=== PATIENT | female | born 1930 | race American Indian/Alaskan Native ===

== ENCOUNTER 2017-08-11 18:58 | Inpatient (IN) | payer MEDICARE ==
--- NOTE | 2017-08-11 19:52 | Emergency Department Report ---
HPI - General Time Seen by Provider: 08/11/17 19:36 - HPI HPI: Room 5 The patient is a 87-year-old female presenting with chief complaint of unresponsiveness. Family states the patient was found slumped over in a chair unresponsive and clammy. Family states the patient was last seen 2 hours prior to this event. Family states they called EMS and the patient gradually became more responsive over the course of 20-30 minutes. Patient states she does remember sitting down in the chair but does not remember events preceding her decreased responsiveness. Patient had no complaints all day and currently has no complaints. Patient denies ever having chest pain, shortness of breath, headache, nausea or vomiting. 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" - Family History Family history: no significant - Social History Smoking Status: Never Smoker Substance Use Type: None - Medications Home Medications: Home Medications Medication Instructions Recorded Confirmed Last Taken Type Aspirin [Aspirin BABY CHEW TAB] 81 mg PO QDAY 10/24/14 05/31/15 05/31/15 History Furosemide [Lasix] 40 mg PO DAILY 10/24/14 05/31/15 05/31/15 History HYDROcodone/APAP 5-325 [[place] 1 each PO Q6HR PRN 10/24/14 05/31/15 05/31/15 History 5-325 mg TAB] Lisinopril 10 mg PO DAILY 10/24/14 05/31/15 05/31/15 History amLODIPine [Norvasc] 5 mg PO DAILY 10/24/14 05/31/15 05/31/15 History ED Review of Systems ROS: Stated complaint: GENERAL WEAKNESS Other details as noted in HPI Comment: All other systems reviewed and negative Constitutional: denies: chills, fever Eyes: denies: eye pain, eye discharge, vision change ENT: denies: ear pain, throat pain Respiratory: denies: cough, shortness of breath, wheezing Cardiovascular: denies: chest pain, palpitations Endocrine: no symptoms reported Gastrointestinal: denies: abdominal pain, nausea, diarrhea Genitourinary: denies: urgency, dysuria, discharge Musculoskeletal: denies: back pain, joint swelling, arthralgia Skin: denies: rash, lesions Neurological: other (unresponsive). denies: headache Psychiatric: denies: anxiety, depression Hematological/Lymphatic: denies: easy bleeding, easy bruising Physical Exam - Physical Exam Physical Exam: GENERAL: The patient is well-developed well-nourished elderly female lying on stretcher not appearing to be in acute distress. [] HEENT: Normocephalic. Atraumatic. Extraocular motions are intact. Patient has moist mucous membranes. NECK: Supple. Trachea midline CHEST/LUNGS: Clear to auscultation. There is no respiratory distress noted. HEART/CARDIOVASCULAR: Regular. There is no tachycardia. There is no gallop rub or murmur. ABDOMEN: Abdomen is soft, nontender. Patient has normal bowel sounds. There is no abdominal distention. SKIN: There is no rash. There is no edema. There is no diaphoresis. NEURO: The patient is awake, alert, and oriented. The patient is cooperative. The patient has no focal neurologic deficits. The patient has normal speech. Cranial nerves II through XII grossly intact, no drift, property site manager is 5+/5 bilaterally. Normal sensation throughout. Moves all extremities well MUSCULOSKELETAL: There is no evidence of acute injury. ED Medical Decision Making - Lab Data Result diagrams: 08/11/17 20:18 08/11/17 20:18 - EKG Data -: EKG Interpreted by Me EKG shows normal: sinus rhythm Rate: normal - EKG Data When compared to previous EKG there are: previous EKG unavailable Interpretation: other (no ischemic changes seen) - Radiology Data Radiology results: report reviewed (chest x-ray), image reviewed (chest x-ray, CT head) interpreted by me: Chest x-ray-no focal infiltrate, no pneumothorax Chest x-ray (read by radiologist)-COPD, no acute pulmonary process. Mild cardiomegaly. CT head (read by radiologist) -no acute intracranial process - Differential Diagnosis dysrhythmia, ICH, TIA, syncope Critical care attestation.: If time is entered above; I have spent that time in minutes in the direct care of this critically ill patient, excluding procedure time. ED Disposition Clinical Impression: Syncope, Elevated troponin, Renal insufficiency Disposition: DC-09 OP ADMIT IP TO THIS HOSP Is pt being admited?: Yes Does the pt Need Aspirin: No (will substitute with Plavix given renal insufficiency) Condition: Stable Instructions: Syncope (ED) Referrals: HUMBLE PATEL MD [Primary Care Provider] - 3-5 Days Time of Disposition: 21:18 (hospitalist paged)
--- NOTE | 2017-08-11 20:18 | XRay Report ---
FINAL REPORT PROCEDURE: XR CHEST 1V AP TECHNIQUE: Chest radiograph anteroposterior view. CPT 64768 HISTORY: episode of unresponsiveness COMPARISON: No prior studies are available for comparison. FINDINGS: Heart: Mild cardiomegaly Mediastinum/Vessels: Normal. Lungs/Pleural space: Lungs are hyperinflated. There are no confluent infiltrates or mass lesions. Pleural spaces are clear.. Bony thorax: No acute osseous abnormality. Life support devices: None. IMPRESSION: COPD No acute pulmonary process Mild cardiomegaly.
[2017-08-11 20:33] LABS: Basophils % (Auto) 1.1 % (0.0-1.8); Eosinophils % (Auto) 1.4 % (0.0-4.3); Hemoglobin 11.8 gm/dl (10.1-14.3); Mean Corpuscular HGB Conc 33 % (30-34); Mean Corpuscular Hemoglobin 29 pg (28-32); Mean Corpuscular Volume 87 fl (79-97); Platelet Count 214 K/mm3 (140-440); Red Blood Count 4.13 M/mm3 (3.65-5.03); Red Cell Distribution Width 16.1 % (13.2-15.2); White Blood Count 5.3 K/mm3 (4.5-11.0)
[2017-08-11 20:45] LABS: INR 1.02 (0.87-1.13)
[2017-08-11 20:46] LABS: Partial Thromboplastin Time 27.1 Sec. (24.2-36.6)
[2017-08-11 20:56] LABS: Creatine Kinase MB 4.1 ng/mL (0.0-4.0)
[2017-08-11 20:57] LABS: Albumin 3.9 g/dL (3.9-5); Albumin/Globulin Ratio 1.3 %; Bilirubin,Total 0.3 mg/dL (0.1-1.2); Calcium 10.1 mg/dL (8.4-10.2); Chloride 104.5 mmol/L (98-107); Magnesium 2.3 mg/dL (1.7-2.3); Total Protein 6.8 g/dL (6.3-8.2)
--- NOTE | 2017-08-11 21:14 | Cat Scan Report ---
FINAL REPORT PROCEDURE: CT HEAD/BRAIN WO CON TECHNIQUE: Computerized tomography of the head was performed without contrast material. HISTORY: episode of unresponsiveness COMPARISON: No prior studies are available for comparison. FINDINGS: Skull and scalp: Normal. Paranasal sinuses: Normal. Ventricles and subarachnoid spaces: Are prominent consistent with cerebral atrophy.. Cerebrum: Moderate degree bilateral periventricular nonspecific white matter hypodensity is noted. An acute intracranial hemorrhage or mass effect is not identified.. Cerebellum and brainstem: No evidence of hemorrhage, acute infarction or mass. Vasculature: Atherosclerotic calcification is noted involving bilateral internal carotid and vertebral arteries.. Comments: None. IMPRESSION: Cerebral atrophy appropriate for patient's age. No acute intracranial abnormality. 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
[2017-08-11] MEDS ORDERED: PLAVIX PO ONE (21:19)
--- NOTE | 2017-08-11 23:04 | History and Physical Report ---
History of Present Illness Date of examination: 08/11/17 History of present illness: 87-year-old lady with a history of hypertension, diabetes, chronic kidney disease was found slumped over in a chair at home. It's unclear how long the patient syncopized. Son states that the patient was clammy Review Of Systems: Constitutional: no weight loss Ears, eyes, nose, mouth and throat: no nasal congestion, no nasal discharge, no sinus pressure, blurry vision, diplopia Neck: No neck pain or rigidity. Cardiovascular: no chest pain, orthopnea, palpitations Respiratory: No shortness of breath, cough Gastrointestinal: abdominal pain, hematochezia Genitourinary : no dysuria, frequency , hematuria Musculoskeletal: no muscle ache Integumentary: no rash, no pruritis Neurological: no parathesias, focal weakness Endocrine: no cold or heat intolerance, no polyuria or polydipsia Hematologic/Lymphatic: no easy bruising, no easy bleeding, no gland swelling Allergic/Immunologic: no urticaria, no angioedema. PAST MEDICAL HISTORY:hypertension, diabetes, chronic kidney disease PAST SURGICAL HISTORY: Nephrectomy FAMILY HISTORY:hypertension SOCIAL HISTORY: Denies alcohol, tobacco, drugs Medications and Allergies Allergies Allergy/AdvReac Type Severity Reaction Status Date / Time No Known Allergies Allergy Verified 10/24/14 02:39 Home Medications Medication Instructions Recorded Confirmed Last Taken Type Aspirin [Aspirin BABY CHEW TAB] 81 mg PO QDAY 10/24/14 08/11/17 05/31/15 History Furosemide [Lasix] 10 mg PO 2XW 10/24/14 08/11/17 05/31/15 History Lisinopril 10 mg PO DAILY 10/24/14 08/11/17 05/31/15 History amLODIPine [Norvasc] 5 mg PO DAILY 10/24/14 08/11/17 05/31/15 History Cholecalciferol (Vitamin D3) 1,000 unit PO 2XW 08/11/17 08/11/17 Unknown History [Vitamin D3] Exam - Physical Exam Narrative exam: Gen. appearance: Patient lying in bed in no acute distress HEENT: Normocephalic/atraumatic, pupils equal round reactive to light, extra alkaline movement intact, no scleral icterus, no JVD or thyromegaly or nodule, neck is supple, mucous membrane moist, no erythema or exudate Heart: S1-S2, regular rate and rhythm Lungs: Clear to auscultation bilateral breathing comfortable Abdomen: Positive bowel sounds, nontender, nondistended, no organomegaly Extremities: No edema, cyanosis, clubbing Neuro:: Oriented 3 , cranial nerves II-12 intact, speech, motor intact Skin: No rash, nodules, warm dry - Constitutional Vitals: Temp Pulse Resp BP Pulse Ox 98.2 F 60 20 121/40 100 08/11/17 22:08 08/11/17 22:08 08/11/17 22:08 08/11/17 22:08 08/11/17 22:08 Results - Labs CBC & Chem 7: 08/12/17 04:52 08/12/17 04:52 Labs: Abnormal lab results 08/11/17 08/11/17 08/11/17 Range/Units 20:18 20:18 20:18 RDW 16.1 H (13.2-15.2) % Lymph # 0.8 L (1.2-5.4) K/mm3 Seg Neutrophils % 77.6 H (40.0-70.0) % D-Dimer 1852 H (0-234) ng/mlDDU BUN 44 H (7-17) mg/dL Creatinine 1.5 H (0.7-1.2) mg/dL Glucose 146 H (65-100) mg/dL Total Creatine Kinase 161 H (30-135) units/L CK-MB (CK-2) 4.1 H (0.0-4.0) ng/mL Troponin T 0.039 H (0.00-0.029) ng/mL Cholesterol 235 H (50-199) mg/dL LDL Cholesterol Direct 142 H (50-130) mg/dL HDL Cholesterol 66 H (40-59) mg/dL - Imaging and Cardiology EKG: image reviewed Chest x-ray: image reviewed CT Scan - head: report reviewed Assessment and Plan Assessment Near-syncope Hypertension Diabetes Chronic kidney disease Plan Admit to medicine Check cardiac enzymes, d-dimer, consult cardiology D-dimer positive will check a VQ scan, othostatics Hold antihypertensives Check fingersticks and initiate insulin sliding scale DVT prophylaxis
[2017-08-11] MEDS ORDERED: MILK OF MAGNESIA PO PRN (23:24)
[2017-08-11] MEDS ORDERED: TYLENOL PO PRN (23:24)
[2017-08-11] MEDS ORDERED: DULCOLAX PR PRN (23:24)
[2017-08-11] MEDS ORDERED: ZOFRAN IV PRN (23:24)
[2017-08-11 23:45] LABS: Creatine Kinase MB 4.3 ng/mL (0.0-4.0)
--- NOTE | 2017-08-12 00:13 | Nuclear Medicine Report ---
FINAL REPORT EXAM: NM LUNG SCAN PERF/VENT HISTORY: eval for pe COMPARISON: Chest x-ray from August 11, 2017. TECHNIQUE: 15 millicuries xenon 133 given by ventilation. 5 millicuries technetium 99 MAA administered by IV. FINDINGS: Mild heterogeneous uptake of tracer on the ventilation portion exam. There is heterogeneous uptake of tracer on the perfusion portion the study also. Questionable tiny subsegmental mismatched defect at the lateral margin right midlung. No definite segmental mismatched defect. IMPRESSION: Low probability exam for pulmonary embolus.
[2017-08-12] MEDS ORDERED: D50W (25GM) Syringe IV PRN (00:37)
[2017-08-12] MEDS ORDERED: NON-FORMULARY (Cholecalciferol (Vitamin D3) [Vitamin D3] 1,000 UNIT) PO SCH (00:45)
[2017-08-12 01:13] LABS: Creatine Kinase MB 4.6 ng/mL (0.0-4.0)
[2017-08-12 05:11] LABS: Bilirubin,Urine NEG (Negative); Blood,Urine NEG (Negative); Ketones,Urine NEG (Negative); Leukocyte Esterase,Urine TR (Negative); Nitrite,Urine NEG (Negative); Protein,Urine <15 mg/dL mg/dL (Negative); RBC,Urine < 1.0 /HPF (0.0-6.0); Urobilinogen,Urine < 2.0 mg/dL (<2.0)
[2017-08-12 06:09] LABS: Basophils % (Auto) 1.1 % (0.0-1.8); Eosinophils % (Auto) 1.1 % (0.0-4.3); Hematocrit 33.1 % (30.3-42.9); Hemoglobin 11.1 gm/dl (10.1-14.3); Mean Corpuscular HGB Conc 33 % (30-34); Mean Corpuscular Hemoglobin 29 pg (28-32); Mean Corpuscular Volume 86 fl (79-97); Platelet Count 206 K/mm3 (140-440); Red Blood Count 3.86 M/mm3 (3.65-5.03); Red Cell Distribution Width 16.3 % (13.2-15.2); White Blood Count 5.6 K/mm3 (4.5-11.0)
[2017-08-12 06:29] LABS: Creatine Kinase MB 4.8 ng/mL (0.0-4.0)
[2017-08-12 06:30] LABS: Calcium 10.1 mg/dL (8.4-10.2); Potassium 4.1 mmol/L (3.6-5.0)
[2017-08-12] MEDS: NOVOLOG SUB-Q SCH ×4 (07:28→22:29)
--- NOTE | 2017-08-12 07:31 | Progress Note ---
Assessment and Plan Assessment and plan: The patient is a 87-year-old female presenting with chief complaint of unresponsiveness. Family states the patient was found slumped over in a chair unresponsive and clammy. Family states the patient was last seen 2 hours prior to this event. Family states they called EMS and the patient gradually became more responsive over the course of 20-[address] of the head no acute intracranial process Echocardiogram ordered. 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 Most likely related to dehydration Avoid renal toxicity Hold AQUILINO inhibitor/ARB's for now IV fluid hydration if renal function does not improve with fluid and consider nephrology Repeat BMP in the AM Closely monitor Diabetes mellitus Accu-Chek before meals and at bedtime Sliding scale insulin/NovoLog ADA consistent carbohydrate/cardiac diet Hypertension Hold AQUILINO inhibitor/ARB's for now IV hydralazine for SBP> 160 for now Closely monitor blood pressure Elevated D-dimer VQ scan no evidence of pulmonary embolism VL dopper ordered Eleavted troponin EKG sinus rhythm Echocardiogram ordered. VL carotid duplex ordered Stress test we will leave it to cardiology Cardiac evaluation DVT/prophylaxis Lovenox History Interval history: Patient denies dizziness, lightheadedness and chest pain. Labs and nurse notes reviewed Hospitalist Physical - Constitutional Vitals: Temp Pulse Resp BP Pulse Ox 98.5 F 73 18 139/56 100 08/12/17 04:45 08/12/17 04:45 08/12/17 04:45 08/12/17 04:45 08/12/17 04:45 General appearance: Present: no acute distress - EENT Eyes: Present: PERRL ENT: hearing intact - Neck Neck: Present: supple - Respiratory Respiratory: bilateral: CTA - Cardiovascular Rhythm: regular Heart Sounds: Present: S1 & S2 - Abdominal General gastrointestinal: soft, non-tender - Integumentary Integumentary: Present: clear, warm, dry - Psychiatric Psychiatric: appropriate mood/affect - Neurologic Neurologic: CNII-XII intact - Allied Health Allied health notes reviewed: nursing Results - Labs CBC & Chem 7: 08/12/17 04:52 08/12/17 04:52 Labs: Laboratory Last Values WBC 5.6 K/mm3 (4.5-11.0) 08/12/17 04:52 RBC 3.86 M/mm3 (3.65-5.03) 08/12/17 04:52 Hgb 11.1 gm/dl (10.1-14.3) 08/12/17 04:52 Hct 33.1 % (30.3-42.9) 08/12/17 04:52 MCV 86 fl (79-97) 08/12/17 04:52 MCH 29 pg (28-32) 08/12/17 04:52 MCHC 33 % (30-34) 08/12/17 04:52 RDW 16.3 % (13.2-15.2) H 08/12/17 04:52 Plt Count 206 K/mm3 (140-440) 08/12/17 04:52 Lymph % (Auto) 25.5 % (13.4-35.0) 08/12/17 04:52 [place] % (Auto) 7.1 % (0.0-7.3) 08/12/17 04:52 Eos % (Auto) 1.1 % (0.0-4.3) 08/12/17 04:52 Baso % (Auto) 1.1 % (0.0-1.8) 08/12/17 04:52 Lymph # 1.4 K/mm3 (1.2-5.4) 08/12/17 04:52 [place] # 0.4 K/mm3 (0.0-0.8) 08/12/17 04:52 Eos # 0.1 K/mm3 (0.0-0.4) 08/12/17 04:52 Baso # 0.1 K/mm3 (0.0-0.1) 08/12/17 04:52 Seg Neutrophils % 65.2 % (40.0-70.0) 08/12/17 04:52 Seg Neutrophils # 3.6 K/mm3 (1.8-7.7) 08/12/17 04:52 PT 13.9 Sec. (12.2-14.9) 08/11/17 20:18 INR 1.02 (0.87-1.13) 08/11/17 20:18 APTT 27.1 Sec. (24.2-36.6) 08/11/17 20:18 D-Dimer 1852 ng/mlDDU (0-234) H 08/11/17 20:18 Sodium 144 mmol/L (137-145) 08/12/17 04:52 Potassium 5.0 mmol/L (3.6-5.0) 08/11/17 20:18 Chloride 104.5 mmol/L (98-107) 08/11/17 20:18 Carbon Dioxide 23 mmol/L (22-30) 08/12/17 04:52 Anion Gap 19 mmol/L 08/11/17 20:18 BUN 42 mg/dL (7-17) H 08/12/17 04:52 Creatinine 1.3 mg/dL (0.7-1.2) H 08/12/17 04:52 Estimated GFR 47 ml/min 08/12/17 04:52 BUN/Creatinine Ratio 32 % 08/12/17 04:52 Glucose 106 mg/dL (65-100) H 08/12/17 04:52 Calcium 10.1 mg/dL (8.4-10.2) 08/12/17 04:52 Magnesium 2.30 mg/dL (1.7-2.3) 08/11/17 20:18 Total Bilirubin 0.30 mg/dL (0.1-1.2) 08/11/17 20:18 AST 21 units/L (5-40) 08/11/17 20:18 ALT 10 units/L (7-56) 08/11/17 20:18 Alkaline Phosphatase 84 units/L (35-129) 08/11/17 20:18 Ammonia 31.0 umol/L (25-60) 08/11/17 20:18 Total Creatine Kinase 156 units/L (30-135) H 08/12/17 04:52 CK-MB (CK-2) 4.8 ng/mL (0.0-4.0) H 08/12/17 04:52 CK-MB (CK-2) Rel Index 3.0 (0-4) 08/12/17 04:52 Troponin T 0.037 ng/mL (0.00-0.029) H 08/12/17 04:52 Total Protein 6.8 g/dL (6.3-8.2) 08/11/17 20:18 Albumin 3.9 g/dL (3.9-5) 08/11/17 20:18 Albumin/Globulin Ratio 1.3 % 08/11/17 20:18 Triglycerides 135 mg/dL (2-149) 08/11/17 20:18 Cholesterol 235 mg/dL (50-199) H 08/11/17 20:18 LDL Cholesterol Direct 142 mg/dL (50-130) H 08/11/17 20:18 HDL Cholesterol 66 mg/dL (40-59) H 08/11/17 20:18 Cholesterol/HDL Ratio 3.56 % 08/11/17 20:18 TSH 3.020 mlU/mL (0.270-4.200) 08/11/17 20:18 Free T4 1.23 ng/dL (0.76-1.46) 08/11/17 20:18 Urine Color Yellow (Yellow) 08/11/17 04:40 Urine Turbidity Clear (Clear) 08/11/17 04:40 Urine pH 5.0 (5.0-7.0) 08/11/17 04:40 Ur Specific [place] 1.016 (1.003-1.030) 08/11/17 04:40 Urine Protein <15 mg/dl mg/dL (Negative) 08/11/17 04:40 Urine Glucose (UA) Neg mg/dL (Negative) 08/11/17 04:40 Urine Ketones Neg mg/dL (Negative) 08/11/17 04:40 Urine Blood Neg (Negative) 08/11/17 04:40 Urine Nitrite Neg (Negative) 08/11/17 04:40 Urine Bilirubin Neg (Negative) 08/11/17 04:40 Urine Urobilinogen < 2.0 mg/dL (<2.0) 08/11/17 04:40 Ur Leukocyte Esterase Tr (Negative) 08/11/17 04:40 Urine WBC (Auto) 3.0 /HPF (0.0-6.0) 08/11/17 04:40 Urine RBC (Auto) < 1.0 /HPF (0.0-6.0) 08/11/17 04:40 U Epithel Cells (Auto) < 1.0 /HPF (0-13.0) 08/11/17 04:40 - Imaging and Cardiology Chest x-ray: image reviewed (unremarkable) CT Scan - head: image reviewed (acute intracranial process)
[2017-08-12] MEDS ORDERED: NACL 0.9% 1000 ML 1,000 ML IV SCH (08:00)
[2017-08-12] MEDS: LOVENOX SUB-Q SCH (10:29)
[2017-08-12] MEDS: BABY ASPIRIN PO SCH (10:29)
--- NOTE | 2017-08-12 11:02 | Consultation ---
History of Present Illness Consult date: 08/12/17 Consult reason: syncope History of present illness: This is an 87yr old woman was brought in after she was found unresponsive and diaphoretic by family members. Patient denies chest pain, shortness of breath and palpitations. Patient denies nausea vomiting, fever and chills. Her presenting ECG is a normal sinus rhythm. Most recent cardiac workup was an echocardiogram 2 years ago that reports a normal left ventricular systolic function, ejection fraction 55-60%. Cardiology consultation was requested for further evaluation. Medications and Allergies Allergies Allergy/AdvReac Type Severity Reaction Status Date / Time No Known Allergies Allergy Verified 10/24/14 02:39 Home Medications Medication Instructions Recorded Confirmed Last Taken Type Aspirin [Aspirin BABY CHEW TAB] 81 mg PO QDAY 10/24/14 08/11/17 05/31/15 History Furosemide [Lasix] 10 mg PO 2XW 10/24/14 08/11/17 05/31/15 History Lisinopril 10 mg PO DAILY 10/24/14 08/11/17 05/31/15 History amLODIPine [Norvasc] 5 mg PO DAILY 10/24/14 08/11/17 05/31/15 History Cholecalciferol (Vitamin D3) 1,000 unit PO 2XW 08/11/17 08/11/17 Unknown History [Vitamin D3] Active Meds: Active Medications Acetaminophen (Tylenol) 650 mg PO Q4H PRN PRN Reason: Pain MILD(1-3)/Fever >100.5/[place] Aspirin (Baby Aspirin) 81 mg PO QDAY [facility] Last Admin: 08/12/17 10:29 Dose: 81 mg Bisacodyl (Dulcolax) 10 mg [place] QDAY PRN PRN Reason: Constipation unrelieved by MOM Cholecalciferol (Vitamin D3) 1,000 unit PO TuFr [facility] Dextrose (D50w (25gm) Syringe) 50 ml IV PRN PRN PRN Reason: Hypoglycemia Enoxaparin Sodium (Lovenox) 30 mg SUB-Q QDAY [facility] Last Admin: 08/12/17 10:29 Dose: 30 mg Sodium Chloride (Nacl 0.9% 1000 Ml) 1,000 mls @ 75 mls/hr IV DIRECT TRAE Insulin Aspart (Novolog) 0 units SUB-Q ACHS TRAE PRN Reason: Protocol Last Admin: 08/12/17 07:28 Dose: Not Given Magnesium Hydroxide (Milk Of Magnesia) 30 ml PO Q4H PRN PRN Reason: Constipation Ondansetron HCl (Zofran) 4 mg IV Q8H PRN PRN Reason: N/V unrelieved by Reglan Physical Examination Vital Signs Temp Pulse Resp BP Pulse Ox 98.2 F 53 L 20 126/39 100 08/11/17 19:30 08/11/17 19:30 08/11/17 19:30 08/11/17 19:30 08/11/17 19:30 General appearance: no acute distress HEENT: Positive: PERRL Neck: Positive: trachea midline Cardiac: Positive: Reg Rate and Rhythm Lungs: Positive: Decreased Breath Sounds Neuro: Positive: Grossly Intact Results 08/12/17 04:52 08/12/17 04:52 Cardiac Enzymes 08/11/17 08/12/17 08/12/17 Range/Units 23:11 00:35 04:52 CK-MB (CK-2) 4.3 H 4.6 H 4.8 H (0.0-4.0) ng/mL CBC 08/12/17 Range/Units 04:52 WBC 5.6 (4.5-11.0) K/mm3 RBC 3.86 (3.65-5.03) M/mm3 Hgb 11.1 (10.1-14.3) gm/dl Hct 33.1 (30.3-42.9) % Plt Count 206 (140-440) K/mm3 Lymph # 1.4 (1.2-5.4) K/mm3 [place] # 0.4 (0.0-0.8) K/mm3 Eos # 0.1 (0.0-0.4) K/mm3 Baso # 0.1 (0.0-0.1) K/mm3 Comprehensive Metabolic Panel 08/12/17 Range/Units 04:52 Sodium 144 (137-145) mmol/L Carbon Dioxide 23 (22-30) mmol/L BUN 42 H (7-17) mg/dL Creatinine 1.3 H (0.7-1.2) mg/dL Glucose 106 H (65-100) mg/dL Calcium 10.1 (8.4-10.2) mg/dL
--- NOTE | 2017-08-13 08:14 | Progress Note ---
Assessment and Plan Assessment and plan: The patient is a 87-year-old female presenting with chief complaint of unresponsiveness. Family states the patient was found slumped over in a chair unresponsive and clammy. Family states the patient was last seen 2 hours prior to this event. Family states they called EMS and the patient gradually became more responsive over the course of 20-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 Most likely related to dehydration Avoid renal toxicity Hold AQUILINO inhibitor/ARB's for now IV fluid hydration if renal function does not improve with fluid and consider nephrology Repeat BMP in the AM Closely monitor Diabetes mellitus Accu-Chek before meals and at bedtime Sliding scale insulin/NovoLog ADA consistent carbohydrate/cardiac diet Hypertension Hold AQUILINO inhibitor/ARB's for now IV hydralazine for SBP> 160 for now Closely monitor blood pressure Elevated D-dimer VQ scan no evidence of pulmonary embolism VL dopper ordered Eleavted troponin EKG sinus rhythm Echocardiogram ordered. VL carotid duplex ordered Stress test we will leave it to cardiology Cardiac evaluation DVT/prophylaxis [facility] Hospitalist Physical - Constitutional Vitals: Temp Pulse Resp BP Pulse Ox 98.2 F 69 16 130/60 99 08/13/17 07:00 08/13/17 07:35 08/13/17 07:00 08/13/17 07:00 08/13/17 07:35 General appearance: Present: no acute distress Results - Labs CBC & Chem 7: 08/12/17 04:52 08/12/17 04:52 Labs: Laboratory Last Values WBC 5.6 K/mm3 (4.5-11.0) 08/12/17 04:52 RBC 3.86 M/mm3 (3.65-5.03) 08/12/17 04:52 Hgb 11.1 gm/dl (10.1-14.3) 08/12/17 04:52 Hct 33.1 % (30.3-42.9) 08/12/17 04:52 MCV 86 fl (79-97) 08/12/17 04:52 MCH 29 pg (28-32) 08/12/17 04:52 MCHC 33 % (30-34) 08/12/17 04:52 RDW 16.3 % (13.2-15.2) H 08/12/17 04:52 Plt Count 206 K/mm3 (140-440) 08/12/17 04:52 Lymph % (Auto) 25.5 % (13.4-35.0) 08/12/17 04:52 [place] % (Auto) 7.1 % (0.0-7.3) 08/12/17 04:52 Eos % (Auto) 1.1 % (0.0-4.3) 08/12/17 04:52 Baso % (Auto) 1.1 % (0.0-1.8) 08/12/17 04:52 Lymph # 1.4 K/mm3 (1.2-5.4) 08/12/17 04:52 [place] # 0.4 K/mm3 (0.0-0.8) 08/12/17 04:52 Eos # 0.1 K/mm3 (0.0-0.4) 08/12/17 04:52 Baso # 0.1 K/mm3 (0.0-0.1) 08/12/17 04:52 Seg Neutrophils % 65.2 % (40.0-70.0) 08/12/17 04:52 Seg Neutrophils # 3.6 K/mm3 (1.8-7.7) 08/12/17 04:52 PT 13.9 Sec. (12.2-14.9) 08/11/17 20:18 INR 1.02 (0.87-1.13) 08/11/17 20:18 APTT 27.1 Sec. (24.2-36.6) 08/11/17 20:18 D-Dimer 1852 ng/mlDDU (0-234) H 08/11/17 20:18 Sodium 144 mmol/L (137-145) 08/12/17 04:52 Potassium 5.0 mmol/L (3.6-5.0) 08/11/17 20:18 Chloride 104.5 mmol/L (98-107) 08/11/17 20:18 Carbon Dioxide 23 mmol/L (22-30) 08/12/17 04:52 Anion Gap 19 mmol/L 08/11/17 20:18 BUN 42 mg/dL (7-17) H 08/12/17 04:52 Creatinine 1.3 mg/dL (0.7-1.2) H 08/12/17 04:52 Estimated GFR 47 ml/min 08/12/17 04:52 BUN/Creatinine Ratio 32 % 08/12/17 04:52 Glucose 106 mg/dL (65-100) H 08/12/17 04:52 POC Glucose 117 (70-105) H 08/12/17 22:20 Calcium 10.1 mg/dL (8.4-10.2) 08/12/17 04:52 Magnesium 2.30 mg/dL (1.7-2.3) 08/11/17 20:18 Total Bilirubin 0.30 mg/dL (0.1-1.2) 08/11/17 20:18 AST 21 units/L (5-40) 08/11/17 20:18 ALT 10 units/L (7-56) 08/11/17 20:18 Alkaline Phosphatase 84 units/L (35-129) 08/11/17 20:18 Ammonia 31.0 umol/L (25-60) 08/11/17 20:18 Total Creatine Kinase 156 units/L (30-135) H 08/12/17 04:52 CK-MB (CK-2) 4.8 ng/mL (0.0-4.0) H 08/12/17 04:52 CK-MB (CK-2) Rel Index 3.0 (0-4) 08/12/17 04:52 Troponin T 0.037 ng/mL (0.00-0.029) H 08/12/17 04:52 Total Protein 6.8 g/dL (6.3-8.2) 08/11/17 20:18 Albumin 3.9 g/dL (3.9-5) 08/11/17 20:18 Albumin/Globulin Ratio 1.3 % 08/11/17 20:18 Triglycerides 135 mg/dL (2-149) 08/11/17 20:18 Cholesterol 235 mg/dL (50-199) H 08/11/17 20:18 LDL Cholesterol Direct 142 mg/dL (50-130) H 08/11/17 20:18 HDL Cholesterol 66 mg/dL (40-59) H 08/11/17 20:18 Cholesterol/HDL Ratio 3.56 % 08/11/17 20:18 TSH 3.020 mlU/mL (0.270-4.200) 08/11/17 20:18 Free T4 1.23 ng/dL (0.76-1.46) 08/11/17 20:18 Urine Color Yellow (Yellow) 08/11/17 04:40 Urine Turbidity Clear (Clear) 08/11/17 04:40 Urine pH 5.0 (5.0-7.0) 08/11/17 04:40 Ur Specific [place] 1.016 (1.003-1.030) 08/11/17 04:40 Urine Protein <15 mg/dl mg/dL (Negative) 08/11/17 04:40 Urine Glucose (UA) Neg mg/dL (Negative) 08/11/17 04:40 Urine Ketones Neg mg/dL (Negative) 08/11/17 04:40 Urine Blood Neg (Negative) 08/11/17 04:40 Urine Nitrite Neg (Negative) 08/11/17 04:40 Urine Bilirubin Neg (Negative) 08/11/17 04:40 Urine Urobilinogen < 2.0 mg/dL (<2.0) 08/11/17 04:40 Ur Leukocyte Esterase Tr (Negative) 08/11/17 04:40 Urine WBC (Auto) 3.0 /HPF (0.0-6.0) 08/11/17 04:40 Urine RBC (Auto) < 1.0 /HPF (0.0-6.0) 08/11/17 04:40 U Epithel Cells (Auto) < 1.0 /HPF (0-13.0) 08/11/17 04:40
[2017-08-13] MEDS ORDERED: LEXISCAN IV ONE ×2 (09:18)
[2017-08-13] MEDS ORDERED: VITAMIN D3 PO SCH (10:00)
[2017-08-13] MEDS: NOVOLOG SUB-Q SCH ×3 (12:05→22:06)
[2017-08-13] MEDS: BABY ASPIRIN PO SCH (12:19)
[2017-08-13] MEDS: LOVENOX SUB-Q SCH (12:19)
--- NOTE | 2017-08-13 14:32 | Progress Note ---
Assessment and Plan - Patient Problems (1) Syncope Current Visit: Yes Status: Acute Plan to address problem: No ischemia on MPI today severe left ventricular hypertrophy, EF 70-75%. Recommendations: Neurological consultation for workup of syncope. Outpatient event monitor. Otherwise, no further cardiac workup. Subjective Date of service: 08/13/17 Interval history: For persantine thallium stress test today. Objective Vital Signs Temp Pulse Resp BP BP Pulse Ox 08/13/17 11:59 88 100 08/13/17 11:58 98.1 F 87 16 165/79 100 08/13/17 09:43 88 142/55 08/13/17 09:42 87 153/62 08/13/17 09:41 84 157/64 08/13/17 09:40 89 149/64 08/13/17 09:39 88 174/64 08/13/17 09:30 65 174/64 08/13/17 07:35 69 99 08/13/17 07:00 98.2 F 92 H 16 130/60 99 08/13/17 05:48 98.2 F 77 20 133/65 100 08/12/17 23:38 97.9 F 70 20 150/54 99 08/12/17 22:00 92 H 08/12/17 20:20 98 08/12/17 20:07 98.5 F 86 20 151/61 100 08/12/17 17:56 78 08/12/17 16:41 98.3 F 82 18 110/57 100 08/12/17 16:00 98.3 F 76 18 110/67 100 - Physical Examination General: No Apparent Distress HEENT: Positive: PERRL Cardiac: Positive: Reg Rate and Rhythm Neuro: Positive: Grossly Intact - Imaging and Cardiology EKG: image reviewed
--- NOTE | 2017-08-14 03:15 | Treadmill Report ---
THALLIUM STRESS TEST REPORT DATE OF SERVICE: 08/13/2017 LEFT VENTRICLE: Left ventricular chamber size is within normal limits. Perfusion study demonstrates homogeneous uptake of the tracer in all segments. No significant perfusion defects identified. Gated analysis demonstrates normal left ventricular systolic function, ejection fraction greater than 70%. CONCLUSION: Normal myocardial perfusion study. JOB# [id number] CA/NTS
[2017-08-14] MEDS: NOVOLOG SUB-Q SCH (07:59)
--- NOTE | 2017-08-14 08:19 | Discharge Summary ---
<CARMEN MCGRAW - Last Filed: 08/14/17 14:13> Providers - Providers Date of Admission: 08/11/17 23:02 Attending physician: CARMEN MCRGAW 08/11/17 23:24 Consult to Physician [CONS] Routine Consulting Provider: QIANA GÓMEZ Reason For Exam: syncope Place consult to:: [facility] Notified:: y Comment:: added to list 08/13/17 11:47 Physical Therapy Evaluation and Treat [CONS] Routine Comment: Reason For Exam: home needs Primary care physician: HUMBLE PATEL Hospitalization Condition: Stable Disposition: DC-01 TO HOME OR SELFCARE Exam - Constitutional Vitals: Temp Pulse Resp BP Pulse Ox 98.6 F 60 18 138/71 100 08/14/17 08:00 08/14/17 08:00 08/14/17 08:00 08/14/17 08:00 08/14/17 08:00 Plan Follow up with: HUMBLE PATEL MD [Primary Care Provider] - 3-5 Days LEMUEL KENDRICK MD [Staff Physician] - 7 Days <ROSALVA TERAN - Last Filed: 08/14/17 15:14> Providers - Providers Date of Admission: 08/11/17 23:02 Date of discharge: 08/14/17 Attending physician: CARMEN MCGRAW 08/11/17 23:24 Consult to Physician [CONS] Routine Consulting Provider: QIANA GÓMEZ Reason For Exam: syncope Place consult to:: [facility] Notified:: y Comment:: added to list 08/13/17 11:47 Physical Therapy Evaluation and Treat [CONS] Routine Comment: Reason For Exam: home needs Primary care physician: HUMBLE PATEL Hospitalization Reason for admission: syncope Hospital course: patient is a 87-year-old female presenting with chief complaint of unresponsiveness. Family states the patient was found slumped over in a chair unresponsive and clammy. Family states the patient was last seen 2 hours prior to this event. Family states they called EMS and the patient gradually became more responsive over the course of 20-30 minutes. Patient presented with syncope and elevated troponin,ACS was ruled out, stress test normal MPI, negative cardiac enzymes, ECGs shows normal sinus rythm, CXR CT of the head no acute intracranial process, Echocardiogram on 08/12/2017 with ef 70-75%, VL carotid duplex ordered, VQ scan no evidence of pulmonary embolism. Patient syncope probably from dehydration. He was treated with IV fluid hydration and insulin and antihypertensive medications. Patient is clinically improved and stable for discharge. Patient advised to follow-up with Cardiology. 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 Diabetes mellitus Hypertension Elevated D-dimer Eleavted troponin Time spent for discharge: 35 minutes Core Measure Documentation - Palliative Care Palliative Care/ Comfort Measures: Not Applicable - Core Measures Any of the following diagnoses?: none Exam - Constitutional Vitals: Temp Pulse Resp BP Pulse Ox 97.5 F L 69 18 134/59 99 08/14/17 04:59 08/14/17 04:59 08/14/17 04:59 08/14/17 04:59 08/14/17 04:59 General appearance: Present: no acute distress - EENT Eyes: Present: PERRL ENT: hearing intact - Respiratory Respiratory effort: normal Respiratory: bilateral: CTA - Cardiovascular Rhythm: regular Heart Sounds: Present: S1 & S2 - Abdominal General gastrointestinal: Present: soft, non-tender - Rectal Rectal Exam: deferred - Integumentary Integumentary: Present: clear, warm, dry - Musculoskeletal Musculoskeletal: strength equal bilaterally - Psychiatric Psychiatric: appropriate mood/affect - Neurologic Neurologic: CNII-XII intact - Allied Health Allied health notes reviewed: nursing Plan Activity: no restrictions, fall precautions Weight Bearing Status: Weight Bear as Tolerated Diet: low fat, low cholesterol, low salt
[2017-08-14 08:56] VITALS: BP 138/71
--- NOTE | 2017-08-14 11:29 | Progress Note ---
Assessment and Plan - Patient Problems (1) Syncope Current Visit: Yes Status: Acute Plan to address problem: No ischemia on MPI this admission severe left ventricular hypertrophy, EF 70-75%. Recommendations: Neurological consultation for workup of syncope. Outpatient cardiac evaluation with an event monitor. Otherwise, conservative cardiac management. Subjective Date of service: 08/14/17 Interval history: Patient has no complaints. Reports she is feeling better. No events on telemetry overnight. Objective Vital Signs Temp Pulse Pulse Resp BP BP Pulse Ox 08/14/17 08:00 98.6 F 60 18 138/71 100 08/14/17 04:59 97.5 F L 69 18 134/59 99 08/14/17 00:31 98.2 F 17 117/55 08/13/17 22:00 79 18 08/13/17 20:26 98.5 F 75 18 131/59 100 08/13/17 16:36 98.1 F 77 16 139/105 100 08/13/17 15:58 69 18 100 08/13/17 11:59 88 100 08/13/17 11:58 98.1 F 87 16 165/79 100 - Physical Examination General: No Apparent Distress HEENT: Positive: PERRL Cardiac: Positive: Reg Rate and Rhythm Extremities: Absent: edema - Imaging and Cardiology EKG: image reviewed
== END 2017-08-14 16:40 | disposition home or self-care (01) | DRG 205 ==
LOC: ED 18:58 → 4A 23:02
PROVIDERS: ADMIT Internal Medicine; ATTEND Internal Medicine
DX: M94.0 Chondrocostal junction syndrome [Tietze] (principal); N17.0 Acute kidney failure with tubular necrosis; Z90.5 Acquired absence of kidney; E11.22 Type 2 diabetes mellitus with diabetic chronic kidney disease; N18.9 Chronic kidney disease, unspecified; I12.9 Hypertensive chronic kidney disease with stage 1 through stage 4 chronic kidney disease, or unspecified chronic kidney disease
CPT/HCPCS: 36415; 70450; 71010; 78452; 78582; 80048; 80053; 80061; 81001; 82140; 82550; 82553; 82962; 83735; 84439; 84443; 84484; 85025; 85379; 85610; 85730; 93005; 93010; 93017; 93306; 93880; A9502; A9540; A9558; G8978-GP; G8979-GP; J1650; J1815; J2785; J7030